=== PATIENT | female | born 1995 | race Hispanic/Latino ===

== ENCOUNTER 2017-10-08 09:05 | Day surgery (SDC) | payer SELFPAY ==
[2017-10-08 14:19] LABS: Bacteria/HPF 3+ HPF (None Seen); Bilirubin Negative (Negative); Blood, Urine Moderate (Negative); Glucose, Urine (Dipstick) Negative (Negative); Hyaline Casts/LPF 4-6 HYALINE CAST LPF (0-3 Hyaline); Ketone, Urine Negative (Negative); Nitrite Negative (Negative); Protein, Urine (Dipstick) Negative (Neg-Trace); RBC/HPF 0-3 HPF (0-3); Urobilinogen 0.2 mg/dL (0.2-1.0)
== END 2017-10-08 11:58 | disposition home or self-care (01) ==
LOC: L&D/OP 09:05
PROVIDERS: ATTEND Obstetrics & Gynecology
DX: O47.1 False labor at or after 37 completed weeks of gestation (principal); Z3A.38 38 weeks gestation of pregnancy; Z79.899 Other long term (current) drug therapy
CPT/HCPCS: 81001

== ENCOUNTER 2017-10-09 05:57 | Inpatient (IN) | payer MEDICAID, SELFPAY ==
[2017-10-09 06:28] VITALS: BMI 28.5
[2017-10-09] MEDS: Lactated Ringer's 1,000 ML IV SCH ×2 (06:47→08:17)
[2017-10-09] MEDS ORDERED: LR / Pitocin 40 units/1000 ml 1,000 ML IV PRN (07:16)
[2017-10-09] MEDS ORDERED: Ibuprofen 800 MG TAB PO PRN (07:16)
[2017-10-09] MEDS ORDERED: Promethazine HCl 25 MG/ML VIAL IM PRN ×2 (07:16→08:37)
[2017-10-09] MEDS ORDERED: Lidocaine 1% (PF) 30 ML VIAL SC PRN (07:16)
[2017-10-09] MEDS ORDERED: Ondansetron HCl/PF 4 MG/2 ML Vial IVP PRN ×2 (07:16→08:37)
[2017-10-09] MEDS ORDERED: Fentanyl 4 mcg/Marc 0.1% Cadd 100 ML ONE (07:17)
[2017-10-09 07:31] LABS: Hematocrit 40.6 % (36.0-47.0); Mean Platelet Volume 6.4 fL (7.4-10.4); Red Blood Cell (RBC) Count 4.31 mill/uL (4.00-5.20); White Blood Cell (WBC) Count 9.4 thou/uL (4.8-10.8)
[2017-10-09] MEDS ORDERED: ePHEDrine/0.9% NaCl/PF SYRINGE 50 mg/10 ml SLOW IVP PRN (08:37)
[2017-10-09] MEDS ORDERED: Eucerin (Mineral Oil/Petrolatum,White) 30 gm Jar TOP PRN (08:37)
[2017-10-09] MEDS ORDERED: Naloxone HCl 0.4 mg/ml Vial IVP PRN ×2 (08:37)
[2017-10-09] MEDS ORDERED: diphenhydrAMINE 50 MG/ML VIAL IVP PRN (08:37)
[2017-10-09] MEDS ORDERED: Acetaminophen 325 MG TAB PO PRN (08:37)
[2017-10-09] MEDS ORDERED: Lactated Ringer's 500 ML IV PRN (08:37)
[2017-10-09] MEDS ORDERED: Fentanyl 4mcg/Marcaine 0.1% Cassette 100 ML EPIDURAL SCH (08:45)
[2017-10-09] MEDS ORDERED: Communication Order-Pharmacy FS SCH (08:45)
--- NOTE | 2017-10-09 11:15 | PDOC.EVN ---
Event Note - Event Note Event Note: Patient was seen by Dr. Shields and nurse. Patient is much more comfortable after getting epidural. Labor check is / and patient had SROM with clear fluid. Will continue with expectant management for vaginal delivery.
[2017-10-09] MEDS ORDERED: Dextrose 5%-Lactated Ringers 1,000 ML IV SCH (11:30)
--- NOTE | 2017-10-09 11:31 | PDOC.LDPN ---
Labor & Delivery Progress Note - Subjective Subjective: comfortable - Objective Vital signs reviewed and normal: yes General: NAD Uterine fundus: palpable contractions FHT: category 2 (good variability but bradycardia in the 100s noted as baseline) [place] contractions every: 7 min Plan: other -: Continue expectant management. Mild bradycardia with good variability, will start D5 and monitor closely.
--- NOTE | 2017-10-09 16:10 | PDOC.LDPN ---
Labor & Delivery Progress Note - Subjective Subjective: comfortable - Objective Vital signs reviewed and normal: yes General: NAD, resting Uterine fundus: palpable contractions Dilation: 9 Effacement: 100% Station: 0 FHT: category 2, early decelerations, late decelerations [place] contractions every: q2-6min IUPC placed: yes FSE placed: yes Resuscitative measures: maternal position change - Assessment (1) Term Code(s): Z34.80 - ENCOUNTER FOR SUPRVSN OF NORMAL , UNSP TRIMESTER Current Visit: Yes Status: Acute Comment: 22 yo at 38.4 by LMP/12.2 sono presented in active labor. 1. sIUP: labs wnl 2. Maternal Hx: UTI in 3. Labor: 9/100/0, IUPC in place with inadequate MVU's but continues to make change, consider augmentation if no change at next check, persistent bradycardia with baseline in 100's, D5 bolus and other resuscitative measures in place such as position change. 4. Continue expectant management for routine vaginal delivery. Plan: continue plan of care
--- NOTE | 2017-10-09 17:27 | PDOC.LDPN ---
Labor & Delivery Progress Note - Subjective Subjective: comfortable - Objective General: breathing through contractions Uterine fundus: palpable contractions Dilation: 10 Effacement: 100% Station: 0 FHT: category 1 [place] contractions every: q2-3min AROM: clear fluid IUPC placed: yes FSE placed: yes Resuscitative measures: maternal IV fluids, maternal position change - Assessment (1) Term Code(s): Z34.80 - ENCOUNTER FOR SUPRVSN OF NORMAL , UNSP TRIMESTER Current Visit: Yes Status: Acute Comment: 22 yo at 38.4 by LMP/12.2 sono presented in active labor. 1. sIUP: labs wnl 2. Maternal Hx: UTI in 3. Labor: 10/100/0, IUPC in place with inadequate MVU's but continues to make change, consider augmentation if no change at next check, bradycardia improved with baseline in 120's, D5 bolus and other resuscitative measures in place such as position change. Will allow patient to labor down. 4. Continue expectant management for routine vaginal delivery.
[2017-10-09] MEDS ORDERED: Bisacodyl 10 MG SUPP PR PRN (22:22)
[2017-10-09] MEDS ORDERED: LR / Pitocin 40 units/1000 ml 1,000 ML IV SCH (22:22)
[2017-10-09] MEDS ORDERED: Adacel (T-DAP) 0.5 ML VIAL IM ONE (22:22)
[2017-10-09] MEDS ORDERED: Milk Of Magnesia 30 ML UDCUP PO PRN (22:22)
[2017-10-09] MEDS: Ibuprofen 800 MG TAB PO SCH (23:50)
[2017-10-10] MEDS: Ibuprofen 800 MG TAB PO SCH ×3 (05:32→21:21)
--- NOTE | 2017-10-10 07:07 | PDOC.PP ---
Post Progress Note Post Day #: 1 Subjective: 22 yo female s/p at 38.4 wks (LMP/12.2 wk sono) on 10/09/17 at 1813. Doing well. Ambulating in room. Breast feeding. Pain controlled. Worse with breast feeding. Notes lochia is slightly more than her periods. No dizziness, CP , SOB. Voiding with some labial dysuria. Denies labial edema. PO intake tolerated: yes Flatus: yes Ambulation: yes Vital Signs (12 hours) Temp Pulse Resp BP 10/10/17 00:00 99.1 F 94 18 128/70 10/09/17 22:05 99.2 F 84 18 126/71 Weight Weight 68.492 kg - Physical Examination General: NAD Cardiovascular: no m/r/g, RRR Respiratory: clear to auscultation bilaterally, non-labored breathing Abdominal: + bowel sounds, lochia (Moderate), no distention, appropriately TTP Fundus firm & at: -2 cm below umbilicus Extremities: negative homans (B) (FROM) Skin: no rash Neurological: no gross focal deficits Psychiatric: A&Ox3, normal affect Result Diagrams: 10/09/17 06:49 Additional Labs: Post Labs Blood Type A POSITIVE 10/09/17 06:49 Hep Bs Antigen Non-Reactive S/CO (NonReactive) 10/09/17 06:49 (1) Term Code(s): Z34.80 - ENCOUNTER FOR SUPRVSN OF NORMAL , UNSP TRIMESTER Status: Acute Comment: 22 yo now s/p at 38.4 (LMP/12.2 wk sono) on 10/09/17 at 1813. PPD# 1. Doing well. Moderate lochia. Pain controlled. Will have claims consultant evaluate breast feeding today. Likely home tomorrow or the following day. Contine routine PP care. Contraception: Nexplanon. Tdap and flu received during . - Assessment/Plan Encourage ambulation today. staffing consultant. Monitor lochia and pain control throughout the day. Kian
[2017-10-10] MEDS ORDERED: Ferrous Sulfate 325 MG TAB PO SCH (08:00)
[2017-10-10] MEDS ORDERED: Docusate (Surfak) 240 MG CAP PO SCH (09:00)
[2017-10-10] MEDS: Prenatal Vitamin 1 TAB PO SCH (10:43)
[2017-10-11] MEDS: Ibuprofen 800 MG TAB PO SCH ×2 (05:36→14:24)
--- NOTE | 2017-10-11 06:35 | PDOC.PP ---
Post Progress Note Post Day #: 2 Subjective: Patient doing well. Lochia wnl. Ambulating well. Tolerating PO intake and voiding well. PO intake tolerated: yes Flatus: yes Ambulation: yes Vital Signs (12 hours) Temp Pulse Resp BP 10/10/17 21:21 98.4 F 89 20 128/65 Weight Weight 68.492 kg - Physical Examination General: NAD Cardiovascular: no m/r/g, RRR Respiratory: clear to auscultation bilaterally Abdominal: + bowel sounds, lochia, no distention, appropriately TTP Fundus firm & at: umbilicus Extremities: negative homans (B) Neurological: no gross focal deficits Psychiatric: A&Ox3, normal affect Result Diagrams: 10/09/17 06:49 Additional Labs: Post Labs Blood Type A POSITIVE 10/09/17 06:49 Hep Bs Antigen Non-Reactive S/CO (NonReactive) 10/09/17 06:49 (1) Term Code(s): Z34.80 - ENCOUNTER FOR SUPRVSN OF NORMAL , UNSP TRIMESTER Status: Acute Comment: 22 yo now s/p at 38.4 (LMP/12.2 wk sono) on 10/09/17 at 1813. PPD# 1. Doing well. Moderate lochia. Pain controlled. improved since yesterday, also started supplementing with formula. Contine routine PP care. Contraception: Nexplanon. Tdap and flu received during . Discharge home today. <Francesca Henriquez - Last Filed: 10/11/17 10:51> Vital Signs (12 hours) Temp Pulse Resp BP 10/11/17 09:08 98.1 F 75 18 123/75 10/11/17 08:00 98.1 F 75 18 Weight Weight 68.492 kg Result Diagrams: 10/09/17 06:49 Additional Labs: Post Labs Blood Type A POSITIVE 10/09/17 06:49 Hep Bs Antigen Non-Reactive S/CO (NonReactive) 10/09/17 06:49 <Katalina Shields - Last Filed: 10/11/17 12:29> Attending Addendum - Attending Addendum I personally evaluated the patient and discussed the management with Dr. Henriquez on 10/11/17. I agree with the History, Examination, Assessment and Plan documented above with any addition or exceptions noted below. Patient feeling well. well established. Discharge home today. <Katalina Shields - Last Filed: 10/11/17 12:29>
[2017-10-11 09:09] VITALS: BP 123/75; TEMP 98.1
[2017-10-11] MEDS: Prenatal Vitamin 1 TAB PO SCH (09:09)
== END 2017-10-11 17:30 | disposition home or self-care (01) | DRG 775 ==
LOC: L&D/OP 05:57 → L&D 06:43 → 3SW 22:19
PROVIDERS: ADMIT Student in an Organized Health Care Education/Training Program; ATTEND Student in an Organized Health Care Education/Training Program
PROC: 10E0XZZ Delivery of Products of Conception, External Approach (ICD-10-PCS; principal; 2017-10-09)
PROC: 10907ZC Drainage of Amniotic Fluid, Therapeutic from Products of Conception, Via Natural or Artificial Opening (ICD-10-PCS; 2017-10-09)
PROC: 10H07YZ Insertion of Other Device into Products of Conception, Via Natural or Artificial Opening (ICD-10-PCS; 2017-10-09)
PROC: 4A1 Measurement and Monitoring, Physiological Systems, Monitoring (ICD-10-PCS; 2017-10-09)
PROC: 0HQ9XZZ Repair Perineum Skin, External Approach (ICD-10-PCS; 2017-10-09)
DX: O70.0 First degree perineal laceration during delivery (principal); O76 Abnormality in fetal heart rate and rhythm complicating labor and delivery; Z3A.38 38 weeks gestation of pregnancy; Z37.0 Single live birth
CPT/HCPCS: 85027; 86780; 87340; J0595; J2405

== ENCOUNTER 2019-09-23 23:07 | Emergency (ER) | payer MEDICAID, OTHER ==
[2019-09-23 23:51] LABS: #Basophils 0.1 thou/uL (0.0-0.2); #Eosinphils 0.2 thou/uL (0.0-0.7); #Lymphocytes 2.1 thou/uL (1.20-3.40); #Monocytes 0.8 thou/uL (0.11-0.59); #Neutrophils 6.4 thou/uL (1.40-6.50); %Basophils 0.8 % (0.0-1.0); %Lymphocytes 22.2 % (21.0-51.0); %Monocytes 8.3 % (0.0-10.0); %Neutrophils 66.8 % (42.0-75.0); Hemoglobin 13.3 g/dL (12.0-16.0); Mean Corpuscular HGB CONC 34.2 g/dL (32.0-36.0); Mean Corpuscular Hemoglobin 30.1 pg (27.0-31.0); Mean Corpuscular Volume 88.1 fL (78.0-98.0); Mean Platelet Volume 6.3 fL (7.4-10.4); Platelet Count 286 thou/uL (130-400); RBC Distribution Width 11.8 % (11.5-14.5); White Blood Cell (WBC) Count 9.6 thou/uL (4.8-10.8)
[2019-09-24 00:03] LABS: Bilirubin Negative (Negative); Blood, Urine 3+ (Negative); Clarity Turbid (Clear); Glucose, Urine (Dipstick) Normal (Negative); Leukocyte 75 Leu/uL (Negative); Nitrite Negative (Negative); Protein, Urine (Dipstick) 30 mg/dL (Neg-Trace); Squamous Epithelial 21-50 HPF (0-3); Urobilinogen Normal mg/dL (Less than 2)
[2019-09-24 00:06] LABS: Bacteria/HPF 1+ HPF (None Seen)
[2019-09-24 00:15] LABS: ALT (SGPT) 12 U/L (8-55); AST (SGOT) 13 U/L (5-34); Alkaline Phosphatase 57 U/L (40-110); Anion Gap 13 mmol/L (10-20); BUN (Urea Nitrogen) 15 mg/dL (7.0-18.7); Bilirubin, Total 0.3 mg/dL (0.2-1.2); Calc. Creatinine Clearance 0 mL/min (70-130); Calcium 8.9 mg/dL (7.8-10.44); Carbon Dioxide 21 mmol/L (22-29); Chloride 104 mmol/L (98-107); Estimated GFR-MDRD Greater than 90; Globulin 3.3 g/dL (2.4-3.5); Glucose 86 mg/dL (70-105); Potassium 3.2 mmol/L (3.5-5.1); Protein, Total 7.3 g/dL (6.0-8.3); Sodium 135 mmol/L (136-145)
--- NOTE | 2019-09-24 08:09 | ULT ---
PRELIMINARY REPORT/[facility]/EMERGENCY AFTER HOURS PROCEDURE: PROCEDURE INFORMATION: Exam: US , Limited Exam date and time: 09/24/2019 12:56 AM Clinical history: 24 years old, female; Lmp or gestational age (in weeks): 12w4d; Antepartum complica tions; Bleeding; complicated by abdominal or pelvic pain; Lower; First trimester; ; Patient HX: Pelvic pain with vaginal spotting TECHNIQUE: Imaging protocol: Real-time ultrasound of the maternal uterus with image documentation. Exam focused on the clinical indication. COMPARISON: No relevant prior studies available. FINDINGS: Single living intrauterine fetus, cephalic position. [place] rump length of 6.0 cm estimates age at 12 weeks, 4 days. heart activity documented by the technologist, 165 bpm. Amniotic fluid volume appears within normal limits for this patient. Anterior placenta. The appearance on the provided images suggests at least a partial placenta previa. 30 x 5 mm sonolucent area adjacent to the lower margin of the cervix/internal os, suspicious for asso ciated subchorionic hematoma. Larger, 30 x 20 x 20 mm sonolucent area adjacent to the upper margin of the placenta, in the uterine fundus. Suspect this is an additional larger subchorionic hematoma. No obvious/significant retroplace ntal extension of the hematoma on the provided images. Close/appropriate followup recommended, as clinically directed. Cervical length was estimated with transabdominal scanning, measuring approximately 2.3 cm. This is s hortened for gestation. As clinically directed, more accurate cervical length measurement/evaluation could be obtained with endovaginal scanning. No definite cervical canal dilation or fluid on the provided images. Maternal ovaries/adnexa appear essentially unremarkable. The urinary bladder was not completely evaluated/imaged at this time. IMPRESSION: 1. Single living intrauterine fetus, 12 weeks, 4 days estimated age. 2. Anterior placenta, with appearance compatible with at least a partial placenta previa. 3. Suspected subchorionic hematomas at the lower and upper margins of the placenta. Please see above details/discussion. 4. Cervical length estimated at only 2.3 cm, above discussion. 5. Other details discussed above. Thank you for allowing us to participate in the care of your patient. Dictated and Authenticated by: Humble Jacobs MD 09/24/2019 1:41 AM Central Time ([place] & [place]) FINAL REPORT TRANSABDOMINAL PELVIC ULTRASOUND WITH MAK SCALE AND COLOR FLOW AND SPECTRAL DOPPLER IMAGING: I agree with the preliminary report given by [place]. POS: OFF
== END 2019-09-24 02:25 | disposition home or self-care (01) ==
LOC: ERS 23:07
DX: O36.8910 Maternal care for other specified fetal problems, first trimester, not applicable or unspecified (principal); Z3A.09 9 weeks gestation of pregnancy
CPT/HCPCS: 36415; 76856; 80053; 81003; 81015; 84702; 85025; 86850; 86900; 86901; 87086; 87480; 87491; 87510; 87591; 87660; 93976; 99284

== ENCOUNTER 2020-03-16 13:14 | Inpatient (IN) | payer OTHER, SELFPAY ==
[2020-03-16 13:46] VITALS: BMI 25.9
[2020-03-16] MEDS ORDERED: Lidocaine 1% (PF) 30 ML VIAL SC PRN (13:50)
[2020-03-16] MEDS ORDERED: Methylergonovine 0.2 MG/ML VIAL IM PRN (13:50)
[2020-03-16] MEDS ORDERED: Misoprostol 200 MCG TAB PR PRN (13:50)
[2020-03-16] MEDS ORDERED: Ondansetron PF 4 MG/2 ML Vial IVP PRN (13:50)
[2020-03-16] MEDS ORDERED: Promethazine HCl 25 MG/ML VIAL IM PRN (13:50)
[2020-03-16] MEDS ORDERED: hydrALAZINE 20 MG/ML VIAL SLOW IVP PRN ×2 (13:50→17:05)
[2020-03-16] MEDS ORDERED: NS / Oxytocin 40 units/1000ml 1,000 ML IV PRN (13:50)
[2020-03-16] MEDS ORDERED: Ibuprofen 800 MG TAB PO PRN (13:50)
[2020-03-16] MEDS ORDERED: NS / Oxytocin 40 units/1000ml 1,000 ML ONE (13:52)
[2020-03-16] MEDS ORDERED: Lactated Ringer's 1,000 ML IV SCH (14:00)
[2020-03-16] MEDS ORDERED: Butorphanol Tartrate 1 MG/ML VIAL SLOW IVP PRN (14:10)
[2020-03-16] MEDS ORDERED: Butorphanol Tartrate 1 MG/ML VIAL ONE (14:10)
--- NOTE | 2020-03-16 14:10 | PDOC.FPROB ---
FMR OB H&P: HPI - History of Present Illness Chief Complaint: contractions Indentification: 24 yo at 38.0 wks by 11.0 wk sono History of Present Illness: Patient arrives in active labor and ashley. + Vaginal bleeding, a scant amount. Denies LOF and decreased FM. Denies complications with this . Primary Care Physician: AGUEDA Eastman FMR OB H&P: Current - Care : 2 Para: 1001 Gestational age: 38.0 Due date: 03/30/2020 Dating Criteria: 11.1 wk sono Course/Complications: Anemia of - OB Labs Blood type: A RH: positive Antibody Screen: negative HIV: negative RPR: negative HepBsAg: negative Rubella: immune Gonorrhea: negative Chlamydia: negative Pap Smear: NILM GBS: negative H&H: 10.7/30.9 Platelets: 265 Additional labs: + Karolina and BV treated. No documentation of JUSTINO. - First Trimester Ultrasound First trimester: Subchorionic hemorrhage and partial previa. - Anatomy Survey Anatomy survey: S<D. Subchorionic hemorrhage and partial previa resolved. - Additional Ultrasound Additional: F/U growth showed [place] at 22.9% FMR OB H&P: History - Past Medical History PMH: None - OB History OB History: Previous 2 years ago at 38 wks. No complications. - ROLL INSPECTOR History ROLL INSPECTOR History: Denies - Surgical History Sx History: None - Social History Social History: Denies drinking, smoking drugs. Moved from [place] in 2010. Had negative TB screen. Varicella immune. FMR OB H&P: Medications - Current Home Medications: Medication Instructions Recorded Confirmed Type No.137/Iron/Folic Acd 1 tab PO DAILY 10/09/17 10/09/17 History [ Vitamin Tablet] Ibuprofen [Motrin] 800 mg PO Q8HR 1 Days #15 tab 10/11/17 Rx Vitamin 1 tab PO DAILY #30 tab 10/11/17 Rx Allergies/Adverse Reactions: Allergies Allergy/AdvReac Type Severity Reaction Status Date / Time No Known Allergies Allergy Verified 10/09/17 06:26 FMR OB H&P: ROS - Review of Systems General: denies: fever/chills Eyes: denies: vision changes Cardiovascular: denies: chest pain Respiratory: denies: cough, shortness of breath Gastrointestinal: denies: nausea, vomiting, diarrhea Genitourinary (Female): reports: vaginal bleeding, contractions, vaginal pressure. denies: dysuria Musculoskeletal: denies: pain Neurologic: denies: syncope Integumentary: denies: rash Hematologic/Lymphatic: denies: prolonged or excessive bleeding Psychological: denies: depression FMR OB H&P: Vital Signs - Maternal Vital signs: BP: 124/77 HR: 89 Temp: 98.5 F - Heart Tones Baseline: 130 Variability: moderate Acceleration: present Deceleration: variable (intermittent) Category: category 2 [place] contractions every: 2-3 min FMR OB H&P: Physical Exam - Physical Exam Deviation from normal: acutely distressed, in pain HEENT: normocephalic and atraumatic, conjunctiva clear, grossly normal vision, grossly normal hearing Neck: supple Heart: RRR, normal S1/S2 General: CTAB, no respiratory distress Abdomen: soft, gravid Neurological: no focal deficit Skin: no rash Lymphatic: no unusual bruising or bleeding Psychiatric: normal mood and affect - Pelvic Exam SVE: 8/100/0, intact w/ bulging bag per Dr. Anguiano Estimated Weight: 7 lbs FMR OB H&P: A/P - Problem List (1) Term Current Visit: No Status: Acute Code(s): Z34.80 - ENCOUNTER FOR SUPRVSN OF NORMAL , UNSP TRIMESTER Comment: 22 yo now s/p at 38.4 (LMP/12.2 wk sono) on 10/09/17 at 1813. PPD# 1. Doing well. Moderate lochia. Pain controlled. improved since yesterday, also started supplementing with formula. Contine routine PP care. Contraception: Nexplanon. Tdap and flu received during . Discharge home today. Disposition: admit to L&D for expectant delivery. Discussion: Date/Time: 03/16/20 1408 24 yo at 38.0 wga admitted to L&D for: Active labor, Term IUP - routine OB labs ordered. - record reviewed. - delivery expected soon so likely no time for epidural placement. - continue expectant mgmt. - continuous Tocometry and NST. Anemia of - await H/H. - continue iron This H&P was discussed with Dr. Anguiano, who agrees with the above documentation and plan. Signature: Saud Carrillo MD PGY1 Addendum - Attending - Attending Attestation Date/Time: 03/16/20 4514 I personally evaluated the patient and discussed the management with Dr. Carrillo. I agree with the History, Examination, Assessment and Plan documented above with any addition or exceptions noted below.
[2020-03-16 14:11] LABS: Hemoglobin 11.4 g/dL (12.0-16.0); Mean Corpuscular Hemoglobin 27.2 pg (27.0-31.0); Mean Corpuscular Volume 82.4 fL (78.0-98.0); Mean Platelet Volume 6.7 fL (7.4-10.4); Platelet Count 305 thou/uL (130-400); RBC Distribution Width 13.9 % (11.5-14.5); White Blood Cell (WBC) Count 10.8 thou/uL (4.8-10.8)
[2020-03-16 14:47] LABS: HBSAg Index 0.17 S/CO (0-0.99); Hep B Surf Ag Non-Reactive S/CO (NonReactive)
--- NOTE | 2020-03-16 14:59 | PDOC.OPDEL ---
OB Operative/Delivery Note Delivery Dr/Surgeon: Buffy Carrillo. Assist: Attending: Pre-Delivery Diagnosis: active labor Procedure/Post Delivery Dx: spontaneous vaginal delivery Weeks gestation: 38 Anesthesia: none - Additional Findings/Plan Placenta delivered: spontaneous Repaired Obstetrical Laceration: none Estimated blood loss: QBL 50 mL Compilations/Other Findings: Pre-op diagnosis: 1. Term intrauterine , active labor 2. Anemia of Post-op diagnosis: 1. Term intrauterine , delivered 2. Same as above Indication: A 24 yo F presents in active labor Delivery Note: This is a 24yo at 38.0 wga who delivered a viable male at 1434 on 03/16/2020. Following an uneventful antepartum course, a vigorous male was delivered over an intact perineum in the OA position. Anterior shoulder then remainder of body delivered. Nuchal cord x2; reduced nuchal cords prior to delivery of anterior shoulder. Head was held down, and mouth and nares were bulb suctioned. Cord clamped after delayed cord clamping. Cord was cut and cord blood collected. Placenta delivered intact in the [place] presentation with a 3-vessel cord noted. Small amount of retained membranes visualized at cervix and removed w/ ring forceps. The cervix and vagina were inspected and found to be free of lacerations. Infant went to mom for skin-to- skin in good condition. Apgars were 8 and 9 at 1 and 5 minutes respectively. Patient tolerated delivery well and went to after routine recovery/ care. Post delivery plan: routine recovery Addendum - Attending - Attending Attestation Date/Time: 03/16/20 0147 I, Brennen Anguiano MD, personally evaluated the patient and discussed indications for the procedure described by Dr. Carrillo. I directly supervised and participated in the Spontaneous Vaginal Delivery and I agree with the description of procedure as documented above without any addition or exceptions
[2020-03-16] MEDS ORDERED: Adacel (T-DAP) 0.5 ML SYRINGE IM ONE (17:05)
[2020-03-16] MEDS ORDERED: Bisacodyl 10 MG SUPP PR PRN (17:05)
[2020-03-16] MEDS ORDERED: Milk Of Magnesia 30 ML UDCUP PO PRN (17:05)
[2020-03-16] MEDS ORDERED: Lanolin Ointment 7 GM TUBE TOP PRN (17:05)
[2020-03-16] MEDS ORDERED: NS / Oxytocin 40 units/1000ml 1,000 ML IV SCH (17:05)
[2020-03-16] MEDS: Ferrous Sulfate 325 MG TAB PO SCH (18:12)
[2020-03-16 18:45] LABS: Syphilis Antibody Nonreactive (Nonreactive); Syphilis Antibody Index 0.04 S/CO (<1.00 Non-Reactive)
[2020-03-16] MEDS: Docusate Calcium (SURFAK) 240 MG CAP PO SCH (20:16)
[2020-03-16] MEDS: Acetaminophen 325 MG TAB PO PRN (20:17)
[2020-03-16] MEDS ORDERED: Ibuprofen 800 MG TAB PO SCH (22:00)
--- NOTE | 2020-03-17 06:04 | PDOC.OBPPN ---
FMR OB PN: Subj - Interval History Day: 1 24 y/o @ 38.0 WGA delivered via @ 1434 on 03/16/20. Pt reports abdominal pain controlled with ibuprofen. She reports ambulating and voiding without difficulty. She is tolerating PO, denies N/V. She reports minimal lochia. She has been breast feeding without problems and supplementing with formula. Denies H/A, vision changes, SOB, fever, chills. FMR OB PN: Obj - Maternal Vital signs: BP: 115/66 HR: 70 RR: 18 Tmax: 97.8 Pox: 99% on RA Wt: 70kg - Urine output I&O: 03/15/20 03/16/20 03/17/20 06:59 06:59 06:59 Output Total 150 Balance -150 FMR OB PN: Exam - Physical Exam General: NAD, awake, alert and oriented HEENT: normocephalic and atraumatic, MMM, conjunctiva clear, grossly normal vision, grossly normal hearing Neck: supple, no LAD Heart: RRR, normal S1/S2, no murmurs/rubs/gallops, pulses present, no edema General: CTAB, no respiratory distress, good air movement, no rales/rhonchi, no wheezing Abdomen: soft, fundus(cm) (firm below umbilicus) Musculoskeletal: pulses present, FROM in all four extremities Neurological: no focal deficit Skin: good tugor, capillary refill <2 seconds Lymphatic: no unusual bruising or bleeding, no purpura Psychiatric: intact recent and remote memory, good judgement and insight FMR OB PN: Data - Labs Lab results: Laboratory Results - last 24 hr 03/16/20 03/16/20 03/16/20 13:55 13:55 13:55 WBC RBC Hgb Hct MCV MCH MCHC RDW Plt Count MPV Syphilis IgG/IgM Ab Nonreactive Hep Bs Antigen Non-Reactive Blood Type A POSITIVE Antibody Screen NEGATIVE 03/16/20 13:55 WBC 10.8 RBC 4.20 Hgb 11.4 L Hct 34.7 L MCV 82.4 MCH 27.2 MCHC 33.0 RDW 13.9 Plt Count 305 MPV 6.7 L Syphilis IgG/IgM Ab Hep Bs Antigen Blood Type Antibody Screen FMR OB PN: A/P - Problem List (1) Term delivered Status: Acute Code(s): O80 - ENCOUNTER FOR FULL-TERM UNCOMPLICATED DELIVERY Disposition: 1. Term Delivered -Continue routine care -PNV -Ibuprofen for pain control -Encourage ambulation -Encourage breast feeding 2. Anemia affecting -Iron Dispo: Anticipate d/c home this PM pending bilirubin Discussion: Date/Time: 03/17/20 0602 This H&P was discussed with Dr. Anguiano who agrees with the above documentation and plan. Signature: Natalia Baer MD, PGY-3 Addendum - Attending - Attending Attestation Date/Time: 03/20/20 1803 I personally evaluated the patient and discussed the management with Dr. Baer on 03/17/20.. I agree with the History, Examination, Assessment and Plan documented above with any addition or exceptions noted below. Pain controlled. Lochia normal. Afeb. Fundus Firm. Stable for d/c home if baby stable for d/c.
[2020-03-17] MEDS: Ferrous Sulfate 325 MG TAB PO SCH ×2 (07:54→17:19)
[2020-03-17] MEDS: Prenatal Vitamin 1 TAB PO SCH (08:15)
[2020-03-17] MEDS: Docusate Calcium (SURFAK) 240 MG CAP PO SCH ×2 (08:15→20:35)
[2020-03-17] MEDS: Ibuprofen 800 MG TAB PO SCH ×2 (08:15→17:19)
[2020-03-17] MEDS: Acetaminophen 325 MG TAB PO PRN (20:35)
[2020-03-18] MEDS: Ibuprofen 800 MG TAB PO SCH ×2 (00:57→08:25)
--- NOTE | 2020-03-18 06:20 | PDOC.PP ---
Post Progress Note Post Day #: 2 Subjective: Patient is feeling well this AM. Denies pain. Tolerating PO. Feels comfortable going home today. PO intake tolerated: yes Flatus: yes Ambulation: yes Vital Signs (12 hours) Temp Pulse Resp BP Pulse Ox 03/17/20 20:32 97.8 F 77 14 118/75 98 Weight Weight 70.76 kg - Physical Examination General: NAD Cardiovascular: no m/r/g, RRR Respiratory: clear to auscultation bilaterally Abdominal: + bowel sounds, lochia (downtrending), no distention, appropriately TTP Fundus firm & at: level of umbilicus, somewhat off to R side Neurological: no gross focal deficits Psychiatric: A&Ox3, normal affect Result Diagrams: 03/16/20 13:55 Additional Labs: Post Labs Blood Type A POSITIVE 03/16/20 13:55 Hep Bs Antigen Non-Reactive S/CO (NonReactive) 03/16/20 13:55 (1) Term , repeat Code(s): Z34.90 - ENCNTR FOR SUPRVSN OF NORMAL , UNSP, UNSP TRIMESTER Status: Acute - Assessment/Plan 24 yo G2 now P2002 s/p PPD#2 Term Delivered -Continue routine care -PNV -Ibuprofen for pain control -Encourage ambulation -Encourage breast feeding Anemia affecting -Iron on discharge F/U w/ PNC in 2 weeks and establish with another provider for f/u at 6 week visit. Addendum - Attending - Attending Attestation Date/Time: 03/20/20 182 I personally evaluated the patient and discussed the management with Dr. Carrillo on 03/18/20.. I agree with the History, Examination, Assessment and Plan documented above with any addition or exceptions noted below. Pain controlled. Lochia normal. Afeb. Fundus Firm. Stable for d/c home.
[2020-03-18] MEDS: Ferrous Sulfate 325 MG TAB PO SCH ×2 (07:24→10:42)
[2020-03-18] MEDS: Prenatal Vitamin 1 TAB PO SCH (08:24)
[2020-03-18] MEDS: Docusate Calcium (SURFAK) 240 MG CAP PO SCH (08:24)
[2020-03-18 08:55] VITALS: BP 111/67; TEMP 98.1
== END 2020-03-18 11:30 | disposition home or self-care (01) | DRG 807 ==
LOC: L&D/OP 13:14 → L&D 13:50 → 3SW 17:21
PROVIDERS: ADMIT Family Medicine; ATTEND Family Medicine
PROC: 10E0XZZ Delivery of Products of Conception, External Approach (ICD-10-PCS; principal; 2020-03-16)
DX: O99.02 Anemia complicating childbirth (principal); Z37.0 Single live birth; D64.9 Anemia, unspecified; O69.81X0 Labor and delivery complicated by cord around neck, without compression, not applicable or unspecified; Z3A.38 38 weeks gestation of pregnancy
CPT/HCPCS: 36415; 85027; 86780; 86850; 86900; 86901; 87340; 99285; J0595

== ENCOUNTER 2023-03-20 02:53 | Emergency (ER) | payer OTHER, SELFPAY ==
[2023-03-20 03:26] LABS: #Basophils 0.1 thou/uL (0.0-0.2); #Eosinphils 0.3 thou/uL (0.0-0.7); #Lymphocytes 1.5 thou/uL (1.20-3.40); #Neutrophils 11.4 thou/uL (1.40-6.50); %Basophils 0.6 % (0.0-1.0); %Eosinophils 1.9 % (0.0-10.0); %Lymphocytes 10.3 % (21.0-51.0); %Monocytes 6.9 % (0.0-10.0); %Neutrophils 80.3 % (42.0-75.0); Hemoglobin 12.8 g/dL (12.0-16.0); Mean Corpuscular HGB CONC 33.6 g/dL (32.0-36.0); Mean Corpuscular Hemoglobin 29.2 pg (27.0-31.0); Mean Corpuscular Volume 86.7 fl (78.0-98.0); Mean Platelet Volume 6.6 fL (7.4-10.4); Platelet Count 272 10x3/uL (130-400); RBC Distribution Width 12.7 % (11.5-14.5); Red Blood Cell (RBC) Count 4.37 mill/uL (4.20-5.40); White Blood Cell (WBC) Count 14.2 10x3/uL (4.8-10.8)
[2023-03-20 03:40] LABS: BHCG - Serum Negative (NEGATIVE); Pregs Control Background? CLEAR/WHITE (CLR/WHITE); Pregs Control Bar Appear? YES (CONTROL BAR)
[2023-03-20 03:48] LABS: ALT (SGPT) 18 U/L (8-55); AST (SGOT) 18 U/L (5-34); Acetaminophen Less than 10.0 mcg/mL (10.0-30.0); Albumin 4.2 g/dL (3.5-5.0); Alcohol Less than 10 mg/dL (Less than 10); Alkaline Phosphatase 61 U/L (40-110); Anion Gap 14 mmol/L (10-20); BUN (Urea Nitrogen) 20 mg/dL (7.0-18.7); Bilirubin, Total 0.2 mg/dL (0.2-1.2); Calc. Creatinine Clearance 0 mL/min (70-130); Calcium 9.1 mg/dL (7.8-10.44); Carbon Dioxide 22 mmol/L (22-29); Chloride 104 mmol/L (98-107); Estimated GFR 127; Globulin 3.2 g/dL (2.4-3.5); Glucose 98 mg/dL (70-105); Potassium 3.8 mmol/L (3.5-5.1); Protein, Total 7.4 g/dL (6.0-8.3); Salicylate Less than 8.0 mg/dL (15.0-30.0); Sodium 136 mmol/L (136-145)
[2023-03-20] MEDS ORDERED: Lidocaine 1% PF 5 ML VIAL ONE (03:49)
[2023-03-20] MEDS ORDERED: Ketorolac Tromethamine 30 MG/ML VIAL ONE (03:55)
[2023-03-20] MEDS ORDERED: Bacitracin 1 PK ONE (04:52)
[2023-03-20] MEDS ORDERED: Boostrix 0.5 ML (Tdap) VIAL (>/=7 yrs of age) ONE (04:52)
[2023-03-20] MEDS ORDERED: Iopamidol-370 76% 500 ML MDV (1 ML CHARGE) ONE (10:26)
== END 2023-03-20 06:15 | disposition home or self-care (01) ==
LOC: ERS 02:53
DX: S21.101A Unspecified open wound of right front wall of thorax without penetration into thoracic cavity, initial encounter (principal); S41.101A Unspecified open wound of right upper arm, initial encounter; S01.01XA Laceration without foreign body of scalp, initial encounter; D72.829 Elevated white blood cell count, unspecified; Y04.0XXA Assault by unarmed brawl or fight, initial encounter; Y92.524 Gas station as the place of occurrence of the external cause; Z23 Encounter for immunization
CPT/HCPCS: 12035; 70450; 71045; 71260; 72125; 80053; 80307; 84703; 85025; 86850; 86900; 86901; 90471; 90715; 93005; 96374; J1885